=== PATIENT | female | born 1940 | race Caucasian/White ===

== ENCOUNTER 2016-06-12 13:18 | Outpatient (CLI) | payer MEDICARE, OTHER | END 2016-06-12 13:19 | disposition home or self-care (01) | DX: R22.42 Localized swelling, mass and lump, left lower limb (principal) ==

== ENCOUNTER 2017-05-15 10:05 | Outpatient (CLI) | payer MEDICARE, OTHER ==
--- NOTE | 2017-05-20 16:23 | Mammography Report ---
EXAM: Diagnostic digital bilateral mammogram. 05/15/2017 CLINICAL INDICATION: A 76-year-old with personal history of left breast cancer, status post lumpectomy and radiation therapy, family history of breast cancer. TECHNIQUE: Bilateral CCM and MLO views, left true lateral view. COMPARISON: 05/15/2016, 11/09/2015, 05/08/2015, 11/21/2014, 04/27/2014, 2013, 03/16/2014, 06/10/2012, 11/05/2010, 11/03/2009. The breasts demonstrate scattered fibroglandular densities bilaterally. Coarse and punctate, typically benign calcifications are present. Postoperative and post-treatment changes in the left breast are stable, no suspicious masses, clustered microcalcifications, or regions of architectural distortion are identified. IMPRESSION: Benign findings. RECOMMENDATIONS: Routine annual screening unless otherwise clinically indicated. BIRADS 2 Benign findings. STANDARD QUALIFYING STATEMENTS 1. This examination was reviewd with the aid of computer-Aided Detection (CAD). 2. A negative or benign imaging report should not delay biopsy if clinically suspicious findings are present. Consider surgical consultation if warranted. More than 5% of cancers are not identified by imaging. 3. Dense breasts may obscure an underlying neoplasm. TD: 05/15/2017 19:47 NELLIE
== END 2017-05-15 10:06 | disposition home or self-care (01) ==
LOC: DI 10:05
PROVIDERS: ATTEND Internal Medicine Hematology & Oncology
DX: C50.312 Malignant neoplasm of lower-inner quadrant of left female breast (principal); Z80.3 Family history of malignant neoplasm of breast
CPT/HCPCS: 77066

== ENCOUNTER 2017-05-29 11:21 | Outpatient (CLI) | payer MEDICARE, OTHER ==
--- NOTE | 2017-05-29 16:58 | Nuclear Medicine Report ---
EXAM: BONE SCAN EXAM DATE: 05/29/2017 03:15 PM. CLINICAL HISTORY: Left breast cancer. COMPARISON: None available. TECHNIQUE: Following the intravenous administration of 31.7 mCi of technetium 99m MDP and an appropri ate delay, a whole-body scan was performed in anterior and posterior projections. FINDINGS: Exam Quality: Normal overall osseous radiotracer uptake. Physiological tracer uptake in bilateral col lecting systems. Skull: No focal uptake. Thorax: No focal lesions in ribs or sternum. Pelvis: No focal lesions. Spine: There are small focal areas of mildly increased uptake on the right and left sides of the lowe r cervical spine and lower thoracic spine, typical of degenerative facet etiology. Mild uptake along the right side of the thoracic spine, typical for degenerative endplate osteophytes. Extremities: Increased uptake in the medial compartment of the right knee consistent with degenerativ e etiology. Left knee prosthesis. IMPRESSION: No convincing scintigraphic evidence of skeletal metastatic disease. [facility] Referring Provider Line: [phone] SITE ID: [id number]
== END 2017-05-29 11:22 | disposition home or self-care (01) ==
LOC: DI 11:21
PROVIDERS: ATTEND Internal Medicine Hematology & Oncology
DX: C50.912 Malignant neoplasm of unspecified site of left female breast (principal)
CPT/HCPCS: 78306; A9503

== ENCOUNTER 2017-10-01 10:44 | Outpatient (CLI) | payer MEDICARE, OTHER ==
--- NOTE | 2017-10-01 12:44 | XRAY Report ---
TWO VIEW CHEST: 10/01/2017 CLINICAL INDICATION: Productive cough. FINDINGS: Frontal and lateral views of the chest demonstrate a normal cardiac silhouette. The lungs are clear. No effusion or pneumothorax is present. IMPRESSION: NORMAL CHEST. TD: 10/01/2017 12:42
--- NOTE | 2017-10-01 12:46 | XRAY Report ---
SUPINE ABDOMEN: 10/01/2017 CLINICAL INDICATION: Pain. FINDINGS: Supine views of the abdomen demonstrate a normal bowel gas pattern. No small bowel dilatation is present. No abnormal calcifications are appreciated overlying either renal shadow. IMPRESSION: NO EVIDENCE OF BOWEL OBSTRUCTION. TD: 10/01/2017 12:45
== END 2017-10-01 10:45 | disposition home or self-care (01) ==
LOC: DI 10:44
PROVIDERS: ATTEND Nurse Practitioner Family
DX: R05 Cough (principal); K59.00 Constipation, unspecified; R10.9 Unspecified abdominal pain
CPT/HCPCS: 71046; 74018

== ENCOUNTER 2018-06-13 08:11 | Outpatient (CLI) | payer MEDICARE, OTHER | END 2018-06-13 08:12 | disposition home or self-care (01) | LOC: DI 08:11 | PROVIDERS: ATTEND Nurse Practitioner Family | DX: R07.9 Chest pain, unspecified (principal); I08.0 Rheumatic disorders of both mitral and aortic valves | CPT/HCPCS: 93306 ==

== ENCOUNTER 2018-06-24 07:47 | Outpatient (CLI) | payer MEDICARE, OTHER | END 2018-06-24 07:48 | disposition home or self-care (01) | LOC: DI 07:47 | PROVIDERS: ATTEND Nurse Practitioner Family | DX: C50.312 Malignant neoplasm of lower-inner quadrant of left female breast (principal); R07.9 Chest pain, unspecified; R00.0 Tachycardia, unspecified | CPT/HCPCS: 77066; 93017 ==

== ENCOUNTER 2018-06-24 07:51 | Outpatient (CLI) | payer MEDICARE, OTHER ==
--- NOTE | 2018-06-24 11:12 | CARDIAC PROCEDURE NOTE ---
DATE OF SERVICE: 06/24/2018 Physician: Juliette Medrano MD, [facility] ORDERING PROVIDER: Mita Zhang NP. INDICATIONS: Chest pain, tachycardia. CARDIAC RISK FACTORS: Postmenopausal status, sedentary lifestyle, hypertension, family history of heart disease on her paternal side. DESCRIPTION OF PROCEDURE: After signing informed consent, the patient performed a [place] protocol stress test. There was no imaging ordered with this test. Resting heart rate: 67. Peak heart rate: 130 (91% predicted maximum heart rate for age). Resting blood pressure: 138/68. Peak blood pressure: 220/65. The patient exercised for 2 minutes and 20 seconds, and achieved a peak heart rate of 130 (91% PMHR), 4.6 METS. The patient developed mild to moderate shortness of breath. She had no anterior chest pain, mid back pain or symptoms in her jaw. Shortness of breath improved quickly in recovery. EKG AT REST: Normal sinus rhythm, vertical axis, otherwise WNL. EKG AT PEAK: Flat T-wave in lead [address] depression of 1 mm in lead aVF. SUMMARY 1. Normal resting EKG. 2. Poor exercise tolerance and hypertensive blood pressure response to exercise. 3. Borderline abnormal findings by EKG criteria on treadmill stress test, at an adequate achieved level of stress. 4. No imaging was ordered with this test. 5. Consider repeat testing using pharmacological stress test and nuclear imaging. TD: 06/24/2018 10:25 MTDD
--- NOTE | 2018-06-24 12:00 | Mammography Report ---
Reason: L BREAST CA Procedure Date: 06/24/2018 Accession Number: [id number] / [id number] Procedure: DOM - Diagnostic Dig Bilat CPT Code: FULL RESULT: EXAM: Diagnostic Dig Bilat DATE: 06/24/2018 9:33 AM CLINICAL HISTORY: Personal history of left breast cancer status post lumpectomy and radiation in 2014. TECHNIQUE: Bilateral CC and MLO views were obtained. A left MLO view was obtained. COMPARISON: 05/15/2017 through 11/21/2014. FINDINGS: The breasts demonstrate scattered fibroglandular densities bilaterally. Postsurgical changes in the left breast demonstrate further expected evolution with loss of soft tissue density along the site of surgical intervention and consolidation of linear densities consistent with scar. No suspicious masses or nodules are identified. There are no suspicious calcifications or architectural distortions. IMPRESSION: Benign findings RECOMMENDATION: Recommend routine annual diagnostic mammography until 2019. BIRADS CATEGORY 2: Benign findings STANDARD QUALIFYING STATEMENTS: 1. This examination was not reviewed with the aid of Computer-Aided Detection (CAD). 2. A negative or benign imaging report should not delay biopsy if clinically suspicious findings are present. Consider surgical consultation if warrented. More than 5% of cancers are not identified by imaging. 3. Dense breasts may obscure an underlying neoplasm. 4. This examination was reviewed with the aid of 3D imaging (tomography).
== END 2018-06-24 07:52 | disposition home or self-care (01) ==
LOC: DI 07:51
PROVIDERS: ATTEND Internal Medicine Hematology & Oncology
DX: C50.312 Malignant neoplasm of lower-inner quadrant of left female breast (principal)
CPT/HCPCS: 77066

== ENCOUNTER 2019-03-10 12:45 | Emergency (ER) | payer MEDICARE, OTHER ==
[2019-03-10] MEDS ORDERED: SODIUM CHLORIDE 0.9% 1,000 ML IV ONE (13:08)
[2019-03-10] MEDS ORDERED: ONDANSETRON 4 MG/2 ML VIAL IVP STA (13:08)
[2019-03-10] MEDS ORDERED: LOPERAMIDE 2 MG CAPSULE PO STA (13:10)
--- NOTE | 2019-03-10 13:10 | ED Physician Documentation ---
PD HPI ABD PAIN - Stated complaint Stated Complaint: ABDOMINAL PX - Chief complaint Chief Complaint: Abd Pain - History obtained from History obtained from: Patient - History of Present Illness Timing - onset: Today (78-year-old woman with remote gastric sleeve, started the keto diet about a week ago. Suddenly today after eating chicken she developed severe nausea, stomach cramps, and is incontinent of diarrhea. She felt fine this morning. No chest pain or trouble breathing.) Review of Systems Ten Systems: 10 systems reviewed and negative Constitutional: reports: Sweats. 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: Hysterectomy HEENT: Tonsil/Adenoidectomy - Present Medications Home Medications: Ambulatory Orders Medication Instructions Recorded Confirmed Aspirin [Aspir 81] 81 mg PO DAILY 07/04/14 11/09/18 Cholecalciferol (Vitamin D3) 6,000 unit PO DAILY 07/04/14 11/09/18 [Vitamin D-3] Lisinopril 5 mg PO DAILY 07/04/14 11/09/18 Anastrozole 1 mg PO DAILY 09/19/14 11/09/18 Calcium Citrate 500 mg PO DAILY 11/18/16 11/09/18 Psyllium Husk (with Sugar) 1 packet PO DAILY 05/19/17 11/09/18 [Metamucil Powder] Hepatitis A Virus Vaccine/Pf 25 unit IM ONCE 05/25/18 11/09/18 [Vaqta 25 Units/0.5 ml Syringe] Typhoid Vacc,Live,Attenuated 1 each PO ONCE 05/25/18 11/09/18 [Vivotif Bonita] Yellow Fever Vaccine Live/Pf 1,000 unit SQ ONCE 05/25/18 11/09/18 [Stamaril Vial] Ciprofloxacin HCl [Cipro] 500 mg PO BID #20 tablet 03/10/19 Loperamide [Imodium] 2 mg PO QID PRN #10 capsule 03/10/19 Metronidazole [Flagyl] 500 mg PO TID #30 tablet 03/10/19 Promethazine [Phenergan] 25 mg PO Q6H PRN #10 tab 03/10/19 - Allergies Allergies/Adverse Reactions: Allergies Allergy/AdvReac Type Severity Reaction Status Date / Time tape AdvReac Rash Uncoded 11/09/18 10:53 - Social History Does the pt smoke?: No Smoking Status: Never smoker Does the pt drink ETOH?: No Does the pt have substance abuse?: No - Family History Family history: reports: Non contributory PD ED PE NORMAL - Vitals Vital signs reviewed: Yes - General General: Alert and oriented X 3, Other (She is retching) - HEENT HEENT: PERRL, EOMI - Neck Neck: Supple, no meningeal sign, No bony TTP - Cardiac Cardiac: RRR, No murmur - Respiratory Respiratory: No respiratory distress, Clear bilaterally - Abdomen Abdomen: Other (Modest upper abdominal tenderness, decreased bowel tones, incontinent of brown liquid stool.) - Back Back: No CVA TTP, No spinal TTP - Derm Derm: Normal color, Warm and dry - Extremities Extremities: No edema, No calf tenderness / cord - Neuro Neuro: Alert and oriented X 3, Normal speech Results - Vitals Vitals: Vital Signs - 24 hr 03/10/19 03/10/19 12:49 14:57 Temperature 36.5 C Heart Rate 100 84 Respiratory 16 19 Rate Blood Pressure 122/52 L 159/64 H O2 Saturation 96 99 Oxygen O2 Source Room air - Labs Labs: Laboratory Tests 03/10/19 03/10/19 14:18 15:11 WBC 13.6 H RBC 4.48 Hgb 14.3 Hct 42.9 MCV 95.8 MCH 31.9 H MCHC 33.3 RDW 12.1 Plt Count 236 MPV 9.6 Neut # (Auto) 11.2 H Lymph # (Auto) 1.6 Kent # (Auto) 0.6 Eos # (Auto) 0.1 Baso # (Auto) 0.1 Absolute Nucleated RBC 0.00 Nucleated RBC % 0.0 Sodium 141 Potassium 3.6 Chloride 103 Carbon Dioxide 20 L Anion Gap 18.0 H BUN 33 H Creatinine 1.7 H Estimated GFR (MDRD) 29 L Glucose 163 H Calcium 9.3 Total Bilirubin 0.9 AST 29 ALT 28 Alkaline Phosphatase 73 Total Protein 7.5 Albumin 4.4 Globulin 3.1 Albumin/Globulin Ratio 1.4 Lipase 41 - Rads (name of study) CT A/P Radiology: EMP read contemporaneously (Uncomplicated diverticulitis) PD MEDICAL DECISION MAKING - ED course ED course: 78-year-old woman presents with acute illness with stomach cramps, vomiting and diarrhea. Her symptoms abated quickly here with IV fluids and Imodium and Zofran. Labs look like an acute on chronic prerenal azotemia for which she received [address] shows diverticulitis, noting the diverticulitis is somewhat inconsistent with the very sudden onset of her illness which is more of a food poisoning type of illness. That said she was administered Cipro and Flagyl and subsequent colonoscopy in about 8 weeks was advised. She was offered admission for dehydration and diverticulitis but would like to trial outpatient management. Departure - Departure Disposition: Home, Self Care Clinical Impression: Diverticulitis of gastrointestinal tract, Dehydration Condition: Good Record reviewed to determine appropriate education?: Yes Instructions: ED Dehydration, ED Diverticulitis Prescriptions: Ciprofloxacin HCl [Cipro] 500 mg PO BID #20 tablet Loperamide [Imodium] 2 mg PO QID PRN #10 capsule PRN Reason: Diarrhea Metronidazole [Flagyl] 500 mg PO TID #30 tablet Promethazine [Phenergan] 25 mg PO Q6H PRN #10 tab PRN Reason: Nausea / Vomiting Comments: Return for new worsening symptoms. Follow-up with your doctor Friday or Friday for recheck. As discussed I recommend a subsequent colonoscopy in about 8 weeks after everything is healed.
[2019-03-10 14:25] LABS: BASOPHILS # (AUTO) 0.1 10^3/uL (0.0-0.1); BASOPHILS % (AUTO) 0.7 %; EOSINOPHILS # (AUTO) 0.1 10^3/uL (0.0-0.7); EOSINOPHILS % (AUTO) 0.7 %; HGB - HEMOGLOBIN 14.3 g/dL (12.0-16.0); LYMPHOCYTES # (AUTO) 1.6 10^3/uL (1.5-3.5); LYMPHOCYTES % (AUTO) 11.7 %; MEAN CORPUSCULAR HEMOGLOBIN 31.9 pg (27.0-31.0); MEAN CORPUSCULAR HGB CONC 33.3 g/dL (32.0-36.0); MEAN CORPUSCULAR VOLUME 95.8 fL (81.0-99.0); MEAN PLATELET VOLUME 9.6 fL (7.9-10.8); MONOCYTES # (AUTO) 0.6 10^3/uL (0.0-1.0); MONOCYTES % (AUTO) 4.1 %; NEUTROPHILS # (AUTO) 11.2 10^3/uL (1.5-6.6); NEUTROPHILS % (AUTO) 82.1 %; PLT - PLATELET COUNT 236 10^3/uL (130-450); RED BLOOD COUNT 4.48 10^6/uL (4.20-5.40); RED CELL DISTRIBUTION WIDTH 12.1 % (12.0-15.0); WHITE BLOOD COUNT 13.6 x10^3/uL (4.8-10.8)
[2019-03-10] MEDS ORDERED: KETOROLAC 30 MG/ML VIAL IVP STA (14:57)
[2019-03-10 15:34] LABS: ALBUMIN 4.4 g/dL (3.2-5.5); BILIRUBIN,TOTAL 0.9 mg/dL (0.2-1.0); CALCIUM 9.3 mg/dL (8.5-10.3); CREATININE 1.7 mg/dL (0.4-1.0); TOTAL PROTEIN 7.5 g/dL (6.7-8.2)
[2019-03-10 15:35] LABS: ALBUMIN/GLOBULIN RATIO 1.4 (1.0-2.2)
[2019-03-10] MEDS ORDERED: LACTATED RINGERS 1,000 ML IV STA (15:38)
--- NOTE | 2019-03-10 16:34 | CT Report ---
Reason: abd pain Procedure Date: 03/10/2019 Accession Number: [id number] / [id number] Procedure: CT - Abdomen/Pelvis WO CPT Code: FULL RESULT: EXAM: CT ABDOMEN AND PELVIS EXAM DATE: 03/10/2019 03:55 PM. CLINICAL HISTORY: Abdominal pain. COMPARISONS: None. TECHNIQUE: Routine helical CT imaging was performed through the abdomen and pelvis. IV contrast: None. Enteric contrast: No. Reconstructions: Coronal and sagittal. In accordance with CT protocol optimization, one or more of the following dose reduction techniques were utilized for this exam: automated exposure control, adjustment of mA and/or KV based on patient size, or use of iterative reconstructive technique. FINDINGS: Lung Bases: Unremarkable. Liver: Normal. No masses. Gallbladder/Bile Ducts: The gallbladder is surgically absent. There is dilatation of the extrahepatic common bile duct to 12 mm consistent with post- cholecystectomy state. Spleen: Normal. Pancreas: Normal. Adrenal Glands: Normal. Kidneys: Normal. No masses or hydronephrosis. Peritoneal Cavity/Bowel: There is significant sigmoid diverticulosis. There is a 15 to 20 cm long segment of abnormal sigmoid colon with moderate circumferential wall thickening and mild inflammatory changes in the pericolonic fat. Moderate inflammatory changes noted around several distal diverticuli. There is no free air or free fluid. No abscess. Moderate enlargement of bilateral iliac chain lymph nodes. The appendix is not specifically visualized but there is no evidence of inflammatory change in the right lower quadrant. Pelvic Organs: Normal. The bladder and visualized pelvic organs are within normal limits. Vasculature: No aneurysms or other significant abnormality. Bones: No significant abnormality. Other: None. IMPRESSION: 1. Findings consistent with acute diverticulitis of the sigmoid colon with 15 to 20 cm long segment of bowel wall thickening and surrounding inflammatory changes. No abscess. [facility]
[2019-03-10] MEDS ORDERED: metroNIDAZOLE 250 MG TABLET PO STA (16:43)
[2019-03-10] MEDS ORDERED: CIPROFLOXACIN 250 MG TABLET PO STA (16:43)
[2019-03-10 17:22] VITALS: BP 153/84
== END 2019-03-10 17:40 | disposition home or self-care (01) ==
LOC: ED 12:45
DX: K57.32 Diverticulitis of large intestine without perforation or abscess without bleeding (principal); E86.0 Dehydration; R79.89 Other specified abnormal findings of blood chemistry; I10 Essential (primary) hypertension; Z98.84 Bariatric surgery status; Z79.82 Long term (current) use of aspirin
CPT/HCPCS: 36415; 74176; 80053; 83690; 85025; 96361; 96374; 96375; 99283; 99284; A9270; J7120

== ENCOUNTER 2019-04-21 08:27 | Day surgery (SDC) | payer MEDICARE, OTHER ==
[2019-04-21] MEDS ORDERED: LACTATED RINGERS 1,000 ML IV ONE (08:38)
[2019-04-21] MEDS ORDERED: fentaNYL 250 MCG/5 ML VIAL IVP ONE (09:47)
[2019-04-21] MEDS ORDERED: MIDAZOLAM 2 MG/2 ML VIAL IVP ONE (09:47)
[2019-04-21] MEDS ORDERED: ONDANSETRON 4 MG/2 ML VIAL IVP ONE (09:58)
[2019-04-21 10:45] VITALS: BP 134/64
== END 2019-04-21 08:28 | disposition home or self-care (01) ==
LOC: SDS 08:27
PROVIDERS: ATTEND Surgery
PROC: 0DJD8ZZ Inspection of Lower Intestinal Tract, Via Natural or Artificial Opening Endoscopic (ICD-10-PCS; principal; 2019-04-21 09:45)
DX: Z12.11 Encounter for screening for malignant neoplasm of colon (principal); Z86.010 Personal history of colon polyps; K57.30 Diverticulosis of large intestine without perforation or abscess without bleeding; K21.9 Gastro-esophageal reflux disease without esophagitis; I10 Essential (primary) hypertension; K58.9 Irritable bowel syndrome, unspecified; E78.5 Hyperlipidemia, unspecified; C50.912 Malignant neoplasm of unspecified site of left female breast
CPT/HCPCS: G0105; J3010; J7120

== ENCOUNTER 2019-07-22 12:14 | Outpatient (CLI) | payer MEDICARE, OTHER ==
[2019-07-22 17:09] LABS: BASOPHILS # (AUTO) 0.1 10^3/uL (0.0-0.1); BASOPHILS % (AUTO) 1.2 %; EOSINOPHILS # (AUTO) 0.2 10^3/uL (0.0-0.7); EOSINOPHILS % (AUTO) 2.6 %; HGB - HEMOGLOBIN 12.5 g/dL (12.0-16.0); LYMPHOCYTES # (AUTO) 1.5 10^3/uL (1.5-3.5); LYMPHOCYTES % (AUTO) 26.1 %; MEAN CORPUSCULAR HEMOGLOBIN 29.8 pg (27.0-31.0); MEAN CORPUSCULAR HGB CONC 30.9 g/dL (32.0-36.0); MEAN CORPUSCULAR VOLUME 96.4 fL (81.0-99.0); MEAN PLATELET VOLUME 9.8 fL (7.9-10.8); MONOCYTES # (AUTO) 0.5 10^3/uL (0.0-1.0); NEUTROPHILS # (AUTO) 3.5 10^3/uL (1.5-6.6); NEUTROPHILS % (AUTO) 60.6 %; PLT - PLATELET COUNT 220 10^3/uL (130-450); RED BLOOD COUNT 4.19 10^6/uL (4.20-5.40); RED CELL DISTRIBUTION WIDTH 13.2 % (12.0-15.0); WHITE BLOOD COUNT 5.8 x10^3/uL (4.8-10.8)
[2019-07-22 17:26] LABS: BILIRUBIN,URINE NEGATIVE (NEGATIVE); GLUCOSE, URINE (UA) NEGATIVE (NEGATIVE); KETONES,URINE (UA) NEGATIVE (NEGATIVE); LEUKOCYTE ESTERASE, URINE TRACE (NEGATIVE); NITRITE,URINE NEGATIVE (NEGATIVE); OCCULT BLOOD,URINE NEGATIVE (NEGATIVE); PH,URINE 5.5 PH (5.0-7.5); PROTEIN,URINE NEGATIVE (NEGATIVE); UROBILINOGEN,URINE 0.2 (NORMAL) E.U./dL (NORMAL)
[2019-07-22 17:30] LABS: CLARITY,URINE CLEAR (CLEAR)
[2019-07-22 17:31] LABS: HB2 TOTAL 12.8 g/dL; HEMOGLOBIN A1C 0.52 g/dL; HEMOGLOBIN A1C % 5.9 % (4.6-6.2)
[2019-07-22 17:34] LABS: BACTERIA,URINE Rare /HPF (None Seen); RBC,URINE 0-5 /HPF (0-5); SQUAMOUS EPITHELIAL CELL,UR RARE Squamous (<= Few)
[2019-07-22 17:39] LABS: CALCIUM 9.1 mg/dL (8.5-10.3)
== END 2019-07-22 23:59 | disposition home or self-care (01) ==
LOC: LAB.S 12:14
PROVIDERS: ATTEND Orthopaedic Surgery
DX: Z01.818 Encounter for other preprocedural examination (principal); R73.9 Hyperglycemia, unspecified; N39.0 Urinary tract infection, site not specified
CPT/HCPCS: 36415; 80048; 81001; 83036; 85025; 87086

== ENCOUNTER 2019-07-26 12:55 | Outpatient (CLI) | payer MEDICARE, OTHER | END 2019-07-26 12:56 | disposition home or self-care (01) | LOC: RT 12:55 | PROVIDERS: ATTEND Orthopaedic Surgery | DX: Z01.818 Encounter for other preprocedural examination (principal) | CPT/HCPCS: 93005 ==

== ENCOUNTER 2021-01-08 14:04 | Outpatient (CLI) | payer MEDICARE, OTHER ==
--- NOTE | 2021-01-09 16:06 | Mammography Report ---
BILATERAL DIGITAL SCREENING MAMMOGRAM 3D/2D: 01/08/2021 CLINICAL: Routine screening. Personal history of left breast cancer. Comparison is made to exams dated: 06/24/2018 mammogram, 05/15/2017 mammogram, and 05/15/2016 mammogr am - [facility]. There are scattered fibroglandular elements in both breasts. There are benign post operative findings in the left breast. No significant masses, calcifications, or other findings are seen in either breast. There has been no significant interval change. IMPRESSION: BENIGN There is no mammographic evidence of malignancy. A 1 year screening mammogram is recommended. This exam was interpreted at Station ID: [id number]. NOTE: For mammograms, a report in lay terms will be sent to the patient. Approximately 15% of breast malignancies will not be visualized mammographically. In the management of a palpable breast mass, a negative mammogram must not discourage biopsy of a clinically suspicious lesion. Electronically Signed By: Tc soriano/ramonita:01/08/2021 16:27:08 ACR BI-RADS Category 2: Benign Finding(s) 3342F PARENCHYMAL PATTERN: (A) - The breast(s) demonstrate(s) scattered fibroglandular densities. BI-RADS CATEGORY: (2) - 2 RECOMMENDATION: (ANNUAL) - Recommend routine annual screening mammography. [id number] 1 year screening LATERALITY: (B)
== END 2021-01-08 14:05 | disposition home or self-care (01) ==
LOC: DI.S 14:04
DX: Z12.31 Encounter for screening mammogram for malignant neoplasm of breast (principal); Z08 Encounter for follow-up examination after completed treatment for malignant neoplasm; Z85.3 Personal history of malignant neoplasm of breast

== ENCOUNTER 2021-01-18 10:45 | Outpatient (CLI) | payer MEDICARE, OTHER | END 2021-01-18 10:46 | disposition home or self-care (01) | LOC: LAB.S 10:45 | PROVIDERS: ATTEND Orthopaedic Surgery | DX: Z01.818 Encounter for other preprocedural examination (principal); Z53.9 Procedure and treatment not carried out, unspecified reason; R73.9 Hyperglycemia, unspecified; N39.0 Urinary tract infection, site not specified ==

== ENCOUNTER 2021-01-22 11:41 | Outpatient (CLI) | payer MEDICARE, OTHER ==
[2021-01-22 12:07] LABS: BILIRUBIN,URINE NEGATIVE (NEGATIVE); GLUCOSE, URINE (UA) NEGATIVE (NEGATIVE); KETONES,URINE (UA) NEGATIVE (NEGATIVE); LEUKOCYTE ESTERASE, URINE SMALL (NEGATIVE); NITRITE,URINE NEGATIVE (NEGATIVE); OCCULT BLOOD,URINE NEGATIVE (NEGATIVE); PH,URINE 5.5 PH (5.0-7.5); PROTEIN,URINE NEGATIVE (NEGATIVE); UROBILINOGEN,URINE 0.2 (NORMAL) E.U./dL (NORMAL)
[2021-01-22 12:10] LABS: BASOPHILS # (AUTO) 0.1 10^3/uL (0.0-0.1); BASOPHILS % (AUTO) 0.9 %; EOSINOPHILS # (AUTO) 0.1 10^3/uL (0.0-0.7); EOSINOPHILS % (AUTO) 1.9 %; HCT - HEMATOCRIT 41.8 % (37.0-47.0); HGB - HEMOGLOBIN 13.3 g/dL (12.0-16.0); LYMPHOCYTES # (AUTO) 1.7 10^3/uL (1.5-3.5); LYMPHOCYTES % (AUTO) 25.6 %; MEAN CORPUSCULAR HEMOGLOBIN 31.1 pg (27.0-31.0); MEAN CORPUSCULAR HGB CONC 31.8 g/dL (32.0-36.0); MEAN CORPUSCULAR VOLUME 97.9 fL (81.0-99.0); MEAN PLATELET VOLUME 9.1 fL (7.9-10.8); MONOCYTES # (AUTO) 0.6 10^3/uL (0.0-1.0); NEUTROPHILS % (AUTO) 62.1 %; PLT - PLATELET COUNT 191 10^3/uL (130-450); RED BLOOD COUNT 4.27 10^6/uL (4.20-5.40); RED CELL DISTRIBUTION WIDTH 12.3 % (12.0-15.0); WHITE BLOOD COUNT 6.5 x10^3/uL (4.8-10.8)
[2021-01-22 12:17] LABS: BACTERIA,URINE Few /HPF (None Seen); CLARITY,URINE CLEAR (CLEAR); MUCUS,URINE Few Strands; RBC,URINE 0-5 /HPF (0-5); SQUAMOUS EPITHELIAL CELL,UR MOD Squamous (<= Few)
[2021-01-22 12:30] LABS: CALCIUM 9.4 mg/dL (8.5-10.3); CREATININE 1.1 mg/dL (0.4-1.0); POTASSIUM 4.2 mmol/L (3.5-5.0)
[2021-01-22 12:42] LABS: ESTIMATED AVERAGE GLUCOSE 123 mg/dL (70-100); HEMOGLOBIN A1c% 5.9 % (4.27-6.07)
== END 2021-01-22 11:42 | disposition home or self-care (01) ==
LOC: RT 11:41
PROVIDERS: ATTEND Orthopaedic Surgery
DX: Z01.818 Encounter for other preprocedural examination (principal); R73.9 Hyperglycemia, unspecified; N39.0 Urinary tract infection, site not specified
CPT/HCPCS: 36415; 80048; 81001; 83036; 85025; 87086; 93005

== ENCOUNTER 2022-01-28 08:00 | Outpatient (CLI) | payer MEDICARE, OTHER ==
--- NOTE | 2022-01-28 16:18 | XRAY Report ---
PROCEDURE: Chest 2 View X-Ray INDICATIONS: ACUTE BRONCHITIS TECHNIQUE: 2 view(s) of the chest. COMPARISON: 10/01/2017 FINDINGS: Surgical changes and devices: None. Lungs and pleura: No pleural effusions or pneumothorax. Lungs are clear. Mediastinum: Mediastinal contours are normal. Heart size is normal. Bones and chest wall: No suspicious bony abnormalities. Soft tissues appear unremarkable. IMPRESSION: No acute cardiopulmonary process demonstrated radiographically. Reviewed by: Juan Jose Medina MD on 01/28/2022 4:17 PM PDT Approved by: Juan Jose Medina MD on 01/28/2022 4:17 PM PDT Station ID: [id number]
== END 2022-01-28 23:59 | disposition home or self-care (01) ==
LOC: DI.S 08:00
PROVIDERS: ATTEND Emergency Medicine
DX: J20.9 Acute bronchitis, unspecified (principal)

== ENCOUNTER 2022-02-11 12:22 | Outpatient (CLI) | payer MEDICARE, OTHER ==
[2022-02-11 14:34] LABS: BASOPHILS # (AUTO) 0.1 10^3/uL (0.0-0.1); BASOPHILS % (AUTO) 1.2 %; EOSINOPHILS # (AUTO) 0.1 10^3/uL (0.0-0.7); EOSINOPHILS % (AUTO) 2.8 %; HGB - HEMOGLOBIN 12.8 g/dL (12.0-16.0); LYMPHOCYTES # (AUTO) 1.1 10^3/uL (1.5-3.5); LYMPHOCYTES % (AUTO) 21.4 %; MEAN CORPUSCULAR HEMOGLOBIN 31.1 pg (27.0-31.0); MEAN CORPUSCULAR HGB CONC 32.8 g/dL (32.0-36.0); MEAN CORPUSCULAR VOLUME 94.7 fL (81.0-99.0); MEAN PLATELET VOLUME 9.6 fL (7.9-10.8); MONOCYTES # (AUTO) 0.6 10^3/uL (0.0-1.0); MONOCYTES % (AUTO) 11.9 %; NEUTROPHILS # (AUTO) 3.1 10^3/uL (1.5-6.6); NEUTROPHILS % (AUTO) 62.1 %; PLT - PLATELET COUNT 169 10^3/uL (130-450); RED BLOOD COUNT 4.12 10^6/uL (4.20-5.40); RED CELL DISTRIBUTION WIDTH 12.8 % (12.0-15.0)
[2022-02-11 14:56] LABS: CALCIUM 9.4 mg/dL (8.5-10.3); CREATININE 0.9 mg/dL (0.4-1.0); POTASSIUM 4.1 mmol/L (3.5-5.0)
== END 2022-02-11 12:23 | disposition home or self-care (01) ==
LOC: LAB.S 12:22
PROVIDERS: ATTEND Emergency Medicine
DX: R06.02 Shortness of breath (principal)
CPT/HCPCS: 36415; 80048; 83880; 85025

== ENCOUNTER 2022-04-23 17:39 | Outpatient (CLI) | payer MEDICARE, OTHER ==
--- NOTE | 2022-04-24 13:12 | XRAY Report ---
PROCEDURE: Chest 2 View X-Ray INDICATIONS: DYSPNEA TECHNIQUE: 2 views of the chest were acquired. COMPARISON: Chest x-ray 01/28/2022 FINDINGS: Surgical changes and devices: None. Lungs and pleura: No pleural effusions or pneumothorax. Lungs are clear. Mediastinum: Mediastinal contours are normal. Heart size is mildly prominent. Bones and chest wall: No suspicious bony abnormalities. Soft tissues appear unremarkable. IMPRESSION: No acute pulmonary process. Reviewed by: Danae Holloway MD on 04/24/2022 1:11 PM [facility] Approved by: Danae Holloway MD on 04/24/2022 1:11 PM [facility] Station ID: [id number]
== END 2022-04-23 17:40 | disposition home or self-care (01) ==
LOC: DI.S 17:39
PROVIDERS: ATTEND Nurse Practitioner Family
DX: R06.00 Dyspnea, unspecified (principal)

== ENCOUNTER 2022-07-02 15:00 | Outpatient (CLI) | payer MEDICARE, OTHER ==
--- NOTE | 2022-07-02 16:14 | DEXA Report ---
PROCEDURE: Dexa Spine and/or Hip INDICATIONS: POST MENOPAUSAL TECHNIQUE: Dual energy x-ray absorptiometry (DXA) was performed on a [employer] System. Regions measur ed are the AP Spine, femoral neck, and if needed forearm. COMPARISON: Dexa 11/03/2018 FINDINGS: Lumbar Spine: Bone Mineral Density 1.433 g/cm/cm,T score 2.1, compared to 1.4 Left Femoral Neck: Bone Mineral Density 1.054 g/cm/cm, T score 0.1, compared to -0.3 Left Hip: Bone Mineral Density 1.199 g/cm/cm,T score 1.5, compared to 0.8 (T score greater or equal to -1.0: NORMAL) (T score from -1.1 to -2.4: OSTEOPENIA) (T score less than or equal to -2.5 to: OSTEOPOROSIS) Impression: Normal bone mineral density, overall improved compared to prior exam. Patients with diagnosis of osteoporosis or osteopenia should have regular bone mineral density assess ment. For those eligible for Medicare, routine testing is allowed once every 2 years. Testing frequ ency can be increased for patients who have rapidly progressing disease or for those who are receivin g medical therapy to restore bone mass. Reviewed by: Danae Holloway MD on 07/02/2022 4:13 PM PST Approved by: Danae Holloway MD on 07/02/2022 4:13 PM PST Station ID: [id number]
== END 2022-07-02 15:01 | disposition home or self-care (01) ==
LOC: DI 15:00
PROVIDERS: ATTEND Nurse Practitioner Family
DX: Z78.0 Asymptomatic menopausal state (principal)

== ENCOUNTER 2023-05-30 07:00 | Outpatient (CLI) | payer MEDICARE, OTHER ==
--- NOTE | 2023-05-31 16:17 | XRAY Report ---
PROCEDURE: Chest 2V INDICATIONS: SHORTNESS OF BREATH TECHNIQUE: 2 views of the chest were acquired. COMPARISON: Chest radiograph on April 23, 2022. FINDINGS: Surgical changes and devices: None. Lungs and pleura: No pleural effusions or pneumothorax. Stable bilateral mild perihilar and lower lo be bronchial wall thickening. Lungs are otherwise clear with no focal pulmonary consolidation. Mediastinum: Mediastinal contours appear normal. Heart size is normal. Bones and chest wall: No suspicious bony lesions. Overlying soft tissues appear unremarkable. IMPRESSION: Stable bilateral mild perihilar and lower lobe bronchial wall thickening which may be seen in the set ting of reactive airways disease and/or viral pneumonia. No focal pulmonary consolidation. Reviewed by: Arnaldo Lozada MD on 05/31/2023 4:15 PM PST Approved by: Arnaldo Lozada MD on 05/31/2023 4:15 PM PST Station ID: [id number]
== END 2023-05-30 23:59 | disposition home or self-care (01) ==
LOC: DI.S 07:00
PROVIDERS: ATTEND Emergency Medicine
DX: R91.8 Other nonspecific abnormal finding of lung field (principal)

== ENCOUNTER 2023-06-04 14:49 | Outpatient (CLI) | payer MEDICARE, OTHER | END 2023-06-04 14:50 | disposition home or self-care (01) | LOC: DI 14:49 | PROVIDERS: ATTEND Physician Assistant | DX: I11.9 Hypertensive heart disease without heart failure (principal) | CPT/HCPCS: 93306 ==

== ENCOUNTER 2023-09-01 13:45 | Outpatient (CLI) | payer MEDICARE, OTHER | END 2023-09-01 23:59 | disposition critical access hospital (66) | LOC: EMS 13:45 | DX: R10.31 Right lower quadrant pain (principal); K59.00 Constipation, unspecified | CPT/HCPCS: A0425; A0429 ==

== ENCOUNTER 2023-09-01 13:48 | Emergency (ER) | payer MEDICARE, OTHER ==
--- NOTE | 2023-09-01 14:07 | ED Physician Documentation ---
PD HPI ABD PAIN - Stated complaint Stated Complaint: ABD PX - Chief complaint Chief Complaint: Abd Pain - History obtained from History obtained from: Patient - History of Present Illness Pain level max: 5 Pain level now: 5 Quality: Aching, Pain Location: LLQ Recently seen: Not recently seen - Additional information Additional information: Patient is an 82-year-old female who presents to the emergency department complaint of abdominal pain that started this morning. She states that she had a "diverticulitis attack" about an hour ago and is concerned about "a bowel blockage". When asked what she meant about the diverticulitis attack she states that she had nausea and abdominal pain. She states that she has had 3 attacks in the past several years and has been hospitalized once. She states that she has chronic constipation and diarrhea. No blood in the stool. No dysuria. She has nausea but states that she is unable to vomit because she has a band around her stomach for reflux. She states that she has had a colonoscopy in the past. It showed diverticulosis. No fevers. No chills. No recent antibiotics. Review of Systems Constitutional: denies: Fever, Chills Ears: denies: Ear pain Nose: denies: Rhinorrhea / runny nose, Congestion GI: reports: Nausea. 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 : None HEENT: None Psych: None Musculoskeletal: None Derm: None - Past Surgical History Past Surgical History: Yes General: Cholecystectomy, Appendectomy, Gastric surgery Ortho: Knee replacement, Other /ABORIGINAL CEREMONIAL CELEBRANT: Hysterectomy HEENT: Tonsil/Adenoidectomy - Present Medications Home Medications: Ambulatory Orders Medication Instructions Recorded Confirmed Cholecalciferol (Vitamin D3) 6,000 unit PO DAILY 07/04/14 12/25/22 [Vitamin D-3] lisinopriL [Lisinopril] 5 mg PO BID 07/04/14 12/25/22 Psyllium Husk (with Sugar) 1 packet PO DAILY 05/19/17 12/25/22 [Metamucil Powder] Atorvastatin [Lipitor] 20 mg PO DAILY 05/10/19 12/25/22 Metoprolol Succinate 25 mg PO DAILY 05/10/19 12/25/22 Amox/Clav 875/125 [Augmentin] 1 tab PO Q12H #20 tablet 09/01/23 - Allergies Allergies/Adverse Reactions: Allergies Allergy/AdvReac Type Severity Reaction Status Date / Time prednisone AdvReac Hallucinati Verified 09/01/23 13:57 ons tape AdvReac Rash Uncoded 09/01/23 13:57 - Social History Does the pt smoke?: No Smoking Status: Never smoker Does the pt drink ETOH?: No Does the pt have substance abuse?: No - Immunizations Immunizations: TDAP >10years/unknown PD ED PE NORMAL - Vitals Vital signs reviewed: Yes - General General: Alert and oriented X 3, No acute distress - HEENT HEENT: PERRL, Moist mucous membranes - Neck Neck: Supple, no meningeal sign - Cardiac Cardiac: RRR, Strong equal pulses - Respiratory Respiratory: No respiratory distress, Clear bilaterally - Abdomen Abdomen: Soft, Non distended, Other (Tender to palpation left lower quadrant. No peritoneal signs.) - Back Back: No spinal TTP - Derm Derm: Warm and dry - Extremities Extremities: No edema - Neuro Neuro: Alert and oriented X 3 - Psych Psych: Normal mood, Normal affect Results - Vitals Vitals: Vital Signs - 24 hr 09/01/23 09/01/23 09/01/23 13:54 13:57 16:28 Temperature 36 C L 36.5 C 36.7 C Heart Rate 84 84 90 Respiratory 20 20 18 Rate Blood Pressure 184/80 H 184/80 H 145/107 H O2 Saturation 98 98 99 Oxygen O2 Source Room air - Labs Labs: Laboratory Tests 09/01/23 09/01/23 14:17 14:17 WBC 14.6 H RBC 4.40 Hgb 13.5 Hct 43.0 MCV 97.7 MCH 30.7 MCHC 31.4 L RDW 12.3 Plt Count 188 MPV 9.0 Neut # (Auto) 12.5 H Lymph # (Auto) 1.1 L [place] # (Auto) 0.9 Eos # (Auto) 0.1 Baso # (Auto) 0.1 Absolute Nucleated RBC 0.00 Nucleated RBC % 0.0 Sodium 139 Potassium 4.1 Chloride 106 Carbon Dioxide 24 Anion Gap 9.0 BUN 25 H Creatinine 1.4 H Estimated GFR (MDRD) 36 L Glucose 128 H Calcium 9.7 Total Bilirubin 0.6 AST 18 ALT 20 Alkaline Phosphatase 65 Total Protein 7.1 Albumin 4.1 Globulin 3.0 Albumin/Globulin Ratio 1.4 Lipase 28 - Rads (name of study) CT abdomen pelvis Relevant Findings:: Final report received, See rad report PD Medical Decision Making - ED course Complexity details: reviewed results, re-evaluated patient, considered differential, d/w patient ED course: 82-year-old female with a history of diverticulitis. Presents to the emergency department left lower quadrant abdominal pain and what appears to be recurrent diverticulitis. White count of 14,000. Discussed risks and benefits of antibiotic therapy. She elects antibiotic therapy. Discussed C. difficile risk as well. Patient declines any pain or nausea medications for home. Tolerating p.o. without difficulty here. Abdomen is soft, mildly tender in the left lower quadrant. No evidence of perforation or abscess. Patient counseled regarding signs and symptoms for which I believe and urgent re-evaluation would be necess silvia. Patient with good understanding of and agreement to plan and is comfortable going home at this time This document was made in part using voice recognition software. While efforts are made to proofread this document, sound alike and grammatical errors may occur. Departure - Departure Disposition: 01 Home, Self Care Clinical Impression: Diverticulitis Condition: Good Instructions: ED Diverticulitis Follow-Up: your,doctor in 1 week [Other] Prescriptions: Amox/Clav 875/125 [Augmentin] 1 tab PO Q12H #20 tablet Comments: Your CT scan is consistent with diverticulitis today. Please take all antibiotics until gone. Please follow-up with your doctor in 1 week for repeat evaluation. Please return if you worsen. Your prescriptions were sent to [facility] in [place]. EXAM: [id number] CT/ABPEW ([id number]) PROCEDURE: Abdomen/Pelvis W INDICATIONS: LLQ abd pain CONTRAST: Omni 300 100ml TECHNIQUE: After the administration of intravenous contrast, a CT scan of the abdomen and pelvis was performed. Images were recorded and evaluated at appropriate window settings. Reformats: coronal and sagittal. For radiation dose reduction, the following was used: automated exposure control, adjustment of mA and/or kV according to patient size. COMPARISON: CT abdomen pelvis 03/10/2019 FINDINGS: Image quality: Diagnostic. Lower chest: Unremarkable. Liver: No solid mass. Gallbladder and biliary tree: Surgically absent. No biliary dilation, accounting for post- cholecystectomy state. Spleen: No splenomegaly. Pancreas: No pancreatic ductal dilation. Adrenals: No adrenal nodule. Kidneys and ureters: No hydronephrosis. No renal cystic lesion which requires follow up. No solid mass. Stomach, bowel and peritoneum: No bowel distension. No pathologic free fluid. Diverticulosis of the sigmoid and descending colon. There is wall thickening of the descending and sigmoid colon with m inimal surrounding fat stranding, may represent early diverticulitis. Lymph nodes: No central or retroperitoneal adenopathy. Vessels: No infrarenal aortic aneurysm. Atherosclerotic vascular calcifications. PELVIS Reproductive organs: Unremarkable. Bladder: No abnormal wall thickening, accounting for underdistention. Pelvic lymph nodes: No pelvic adenopathy by size criteria. Bones: No aggressive osseous abnormality. Other: No significant ventral or inguinal hernia. IMPRESSION: Diverticulosis with wall thickening and minimal surrounding inflammation involving the descending and sigmoid colon. Findings may represent early diverticulitis. No extraluminal gas or organized fluid collections. Forms: PCP List Discharge Date/Time: 09/01/23 16:31
[2023-09-01 14:20] LABS: BASOPHILS # (AUTO) 0.1 10^3/uL (0.0-0.1); BASOPHILS % (AUTO) 0.5 %; EOSINOPHILS # (AUTO) 0.1 10^3/uL (0.0-0.7); EOSINOPHILS % (AUTO) 0.5 %; HGB - HEMOGLOBIN 13.5 g/dL (12.0-16.0); LYMPHOCYTES # (AUTO) 1.1 10^3/uL (1.5-3.5); LYMPHOCYTES % (AUTO) 7.2 %; MEAN CORPUSCULAR HEMOGLOBIN 30.7 pg (27.0-31.0); MEAN CORPUSCULAR HGB CONC 31.4 g/dL (32.0-36.0); MEAN CORPUSCULAR VOLUME 97.7 fL (81.0-99.0); MONOCYTES # (AUTO) 0.9 10^3/uL (0.0-1.0); NEUTROPHILS # (AUTO) 12.5 10^3/uL (1.5-6.6); NEUTROPHILS % (AUTO) 85.3 %; PLT - PLATELET COUNT 188 10^3/uL (130-450); RED CELL DISTRIBUTION WIDTH 12.3 % (12.0-15.0); WHITE BLOOD COUNT 14.6 x10^3/uL (4.8-10.8)
[2023-09-01 14:34] LABS: ALBUMIN 4.1 g/dL (3.2-5.5); ALBUMIN/GLOBULIN RATIO 1.4 (1.0-2.2); BILIRUBIN,TOTAL 0.6 mg/dL (0.2-1.0); CALCIUM 9.7 mg/dL (8.5-10.3); CREATININE 1.4 mg/dL (0.6-1.3); POTASSIUM 4.1 mmol/L (3.5-4.5); TOTAL PROTEIN 7.1 g/dL (6.4-8.9)
[2023-09-01] MEDS ORDERED: iohexoL-300 100 ML VIAL ONE (15:22)
[2023-09-01] MEDS: iohexoL-300 100 ML VIAL IVP ONE (15:35)
--- NOTE | 2023-09-01 15:51 | CT Report ---
PROCEDURE: Abdomen/Pelvis W INDICATIONS: LLQ abd pain CONTRAST: Omni 300 100ml TECHNIQUE: After the administration of intravenous contrast, a CT scan of the abdomen and pelvis was performed. Images were recorded and evaluated at appropriate window settings. Reformats: coronal and sagittal. F or radiation dose reduction, the following was used: automated exposure control, adjustment of mA and /or kV according to patient size. COMPARISON: CT abdomen pelvis 03/10/2019 FINDINGS: Image quality: Diagnostic. Lower chest: Unremarkable. Liver: No solid mass. Gallbladder and biliary tree: Surgically absent. No biliary dilation, accounting for post-cholecystec zenaida state. Spleen: No splenomegaly. Pancreas: No pancreatic ductal dilation. Adrenals: No adrenal nodule. Kidneys and ureters: No hydronephrosis. No renal cystic lesion which requires follow up. No solid mas s. Stomach, bowel and peritoneum: No bowel distension. No pathologic free fluid. Diverticulosis of the s igmoid and descending colon. There is wall thickening of the descending and sigmoid colon with minima l surrounding fat stranding, may represent early diverticulitis. Lymph nodes: No central or retroperitoneal adenopathy. Vessels: No infrarenal aortic aneurysm. Atherosclerotic vascular calcifications. PELVIS Reproductive organs: Unremarkable. Bladder: No abnormal wall thickening, accounting for underdistention. Pelvic lymph nodes: No pelvic adenopathy by size criteria. Bones: No aggressive osseous abnormality. Other: No significant ventral or inguinal hernia. IMPRESSION: Diverticulosis with wall thickening and minimal surrounding inflammation involving the descending and sigmoid colon. Findings may represent early diverticulitis. No extraluminal gas or organized fluid c ollections. Reviewed by: Fareed Hudson MD on 09/01/2023 3:49 PM PDT Approved by: Fareed Hudson MD on 09/01/2023 3:49 PM PDT Station ID: [id number]
[2023-09-01] MEDS: AMOX/CLAV 875 MG/125 MG TABLET PO STA (16:05)
[2023-09-01 16:30] VITALS: BP 145/107; O2SAT 99
== END 2023-09-01 16:31 | disposition home or self-care (01) ==
LOC: EDUNIT# → ED 13:48
DX: K57.92 Diverticulitis of intestine, part unspecified, without perforation or abscess without bleeding (principal); I10 Essential (primary) hypertension; E78.00 Pure hypercholesterolemia, unspecified; Z79.899 Other long term (current) drug therapy
CPT/HCPCS: 36415; 74177; 80053; 83690; 85025; 99284; A9270; Q9967

== ENCOUNTER 2023-10-03 08:48 | Outpatient (CLI) | payer MEDICARE, OTHER ==
--- NOTE | 2023-10-03 09:51 | Ultrasound Report ---
PROCEDURE: Duplex Ext Veins Left INDICATIONS: L CALF PAIN TECHNIQUE: Real-time imaging, as well as color and pulse Doppler interrogation, were performed of the lower extr emity deep veins from the inguinal ligament to the popliteal fossa. Attempted visualization of the ca lf veins was performed. COMPARISON: Bilateral lower extremity venous ultrasound on June 04, 2022. FINDINGS: The deep veins are normally compressible, and free of intraluminal thrombus. Color and pu lse Doppler demonstrate normal phasic intraluminal flow. There is normal augmentation response to di stal compression maneuver. No sonographic abnormality in the left ankle at site of pain. IMPRESSION: 1.No deep venous thrombosis of the visualized lower extremity. 2.No sonographic abnormality in the left ankle at site of pain. Reviewed by: Arnaldo Lozada MD on 10/03/2023 9:49 AM PDT Approved by: Arnaldo Lozada MD on 10/03/2023 9:49 AM PDT Station ID: [id number]
== END 2023-10-03 08:49 | disposition home or self-care (01) ==
LOC: DI 08:48
PROVIDERS: ATTEND Physician Assistant Medical
DX: M79.662 Pain in left lower leg (principal); L03.116 Cellulitis of left lower limb